=== PATIENT | male | born 1985 | race Caucasian/White ===

== ENCOUNTER 2017-03-28 23:35 | Observation (INO) ==
[2017-03-28] MEDS ORDERED: NITROGLYCERIN 0.4 MG SL TAB (BOTTLE OF 3) SL ONE ×2 (23:49→23:53)
[2017-03-28] MEDS ORDERED: ACETAMINOPHEN 500 MG TABLET PO ONE (23:50)
[2017-03-28] MEDS ORDERED: ASPIRIN 81 MG (BABY) CHEWABLE TABLET ONE (23:50)
[2017-03-28] MEDS ORDERED: CloNIDine Tab 0.1 MG TABLET PO ONE ×2 (23:50→23:53)
[2017-03-28] MEDS ORDERED: ASPIRIN 81 MG (BABY) CHEWABLE TABLET PO ONE (23:53)
[2017-03-29] MEDS ORDERED: CloNIDine Tab 0.1 MG TABLET PO ONE
[2017-03-29] MEDS ORDERED: ACETAMINOPHEN 500 MG TABLET PO ONE (00:01)
[2017-03-29] MEDS ORDERED: Sodium Chloride 0.9% 1,000 ML PRIMARY IV ONE (00:07)
[2017-03-29 00:14] LABS: BASOPHILS # (AUTO) 0.12 10*3/UL; EOSINOPHILS # (AUTO) 0.37 10*3/UL; EOSINOPHILS % (AUTO) 3.1 % (0-8); Hematocrit [HCT] 45.9 % (42.0-52.0); Hemoglobin [HGB] 16.2 g/dL (14.0-18.0); LYMPHOCYTES # (AUTO) 5.09 10*3/uL; MEAN CORPUSCULAR HEMOGLOBIN 30.2 PG (27-31); MEAN CORPUSCULAR HGB CONC 35.3 g/dL (33-37); MEAN CORPUSCULAR VOLUME 85.6 FL (80-90); MEAN PLATELET VOLUME 11.1 FL (7.4-12.2); MONOCYTES # (AUTO) 0.97 10*3/UL (0.3-0.8); MONOCYTES % (AUTO) 8.1 % (5-15); NEUTROPHILS # (AUTO) 5.39 10*3/UL; NEUTROPHILS % (AUTO) 44.9 % (50-80); PLATELET MORPHOLOGY COMMENT NORMAL MORPHOLOGY (NORM); RBC MORPHOLOGY COMMENT NORMAL MORPHOLOGY (NORM); RED BLOOD COUNT 5.36 10^6/uL (4.70-6.10)
--- NOTE | 2017-03-29 00:14 | PDOC ---
Gen Adult / Medical Screen HPI - General Chief Complaint: General Medical Stated Complaint: HIGH BP, CHEST PRESSURE, DIZZY Date Seen by Provider: 03/29/17 Time Seen by Provider: 23:50 Source: POSITIVE: Patient, Spouse Exam Limitations: POSITIVE: No limitations Nurse's Notes Reviewed & Considered: Yes - Indicators Temperature Between 95 and 101 Degrees: Yes Respirations Between 12 and 20: Yes Blood Pressure Between 100-165 (sys) and 60-100 (hill): No (234/164) Pulse Range Between 60-105 (100 for age > 60 years): Yes Severe Pain (Greater than 5/10 Reported): No Chest or Abdominal Pain: Yes Inability to Walk: No Pt Reports Active High Risk Cond. (TB/Hepatitis/HIV/Chemo): No Abnormal Mental Status: No - History of Present Illness Initial Comments: Well-developed 31-year-old male complaining of high blood pressure and chest pain. Patient with recent blood pressure issues and headaches. He comes in tonight because of blood pressure in the 260 systolic range and is very anxious. BP here in the emergency room was 234/164 His father has a history of MS. Patient denies any headache, no sore throat, no shortness of breath, no cough, no nausea vomiting or diarrhea, no abdominal pain, no hematuria or dysuria. Body Location Affected: REPORTS: Chest Timing: REPORTS: Unknown Duration: Unknown Similar Symptoms Previously: Yes Recent Care Received: REPORTS: Recently Seen, Treated by MD Any Prior Injuries Related to Current Complaint?: No - Patient Home Medications Home Medications: Home Medications butalbital 50 mg-acetaminophen 300 mg-caffeine 40 mg-codeine 30 mg cap 1 cap PO Q6H #16 cap 03/22/17 nitvaekzbv-tidueygzcgdye-ntjcgtls 50 mg-300 mg-40 mg capsule 1 cap PO Q6H PRN # 16 cap 03/22/17 sumatriptan 50 mg tablet 50 mg PO ONCE #6 tab 03/25/17 - Patient Allergies Allergies/Adverse Reactions: Allergies 3 Allergy/AdvReac Type Severity Reaction Status Date / Time No Known Allergies Allergy Verified 03/29/17 00:06 Past Medical History - keily VARGAS History: Denies History Cardiovascular History: Denies History Respiratory History: Denies History Gastrointestinal History: GERD Additional Gastrointestinal History: PT STATES THAT HE DOESN'T HAVE HIS STOMACH VALVUE Genitourinary History: Denies History Endocrine History: Denies History Musculoskeletal History: Denies History Prosthesis or Implant: No Additional Musculoskeletal History: RIGHT ANKLE PAIN/ SWELLING Neurological History: Motion Sickness Blood Disorders: Denies History Psychiatric History: Denies History History of Sexually Transmitted Diseases: No Cancer History: Denies History History of MDRO: No History of Other Communicable Diseases: No Alcohol Use: Occasionally In the Past 12 Months, Have Used or Abuse Any Substance: None Previous Surgical History: No Significant Family History: Diabetes, Hypertension Additional Family History: FATHER-DIABETES. FAMILY-HTN ROS - Limitations ROS Limitations: No Limitations Constitution: REPORTS: Chills Cardiovascular: REPORTS: Chest Pain, Blood Pressure Problem Respiratory: REPORTS: Denies Resp Symptoms Neurological: REPORTS: Denies Neuro Symptoms Gastrointestinal: REPORTS: Denies GI Symptoms Endocrine: REPORTS: Denies Symptoms Musculoskeletal: REPORTS: Denies MS Symptoms Genitourinary: REPORTS: Denies Symptoms Eyes: REPORTS: Denies Symptoms ENT: REPORTS: Denies Symptoms Skin: REPORTS: Denies Skin Symptoms Lympathic: REPORTS: Denies Lympathic Symptoms Immunologic: POSITIVE: Denies Symptoms Psychiatric: POSITIVE: Anxiety Gen Adult/Medical Screen Exam - General Appearance General Appearance: POSITIVE: Alert, Cooperative, No Evidence of Trauma, Anxious , Moderate Distress - HEENT HEENT: POSITIVE: Head Inspection Nml, Eyes Inspection Nml, Ears Inspection Nml, Nose Inspection Nml, Oral/Dental Inspect. Nml, Pharynx Inspect. Nml, PERRL, EOMI - Pupils Pupil Size: 4 mm: Bilateral - Neck Neck: POSITIVE: Normal Inspection, Thyroid Normal - Respiratory Respiratory: POSITIVE: No Respiratory Distress, Breath Sounds Normal, Chest Non- Tender - Cardiovascular Cardiovascular: POSITIVE: Regular Rate & Rhythm, No Murmur, No Gallop, PMI Normal Peripheral Pulses: Radial (R): 4+ - Abdomen Abdomen: Soft: (All Quadrants), Normal Bowel Sounds: (All Quadrants), Denies Tenderness: (All Quadrants), No Splenomegaly: (All Quadrants), No Hepatomegaly: (All Quadrants), No Guarding: (All Quadrants), No Rebound: (All Quadrants), No Palpable Pulse: (All Quadrants), No Palpabale Mass: (All Quadrants), No Distention: (All Quadrants), No Rigidity: (All Quadrants) - Neurological / Psychological Mental Status: POSITIVE: Mood Normal, Affect Normal Orientation: POSITIVE: Oriented x 3 - Skin Skin: POSITIVE: Normal Color, Warm, Dry, No Rash - Extremities Extremity: Non-Tender: (All Extremities), Normal ROM: (All Extremities), Normal Inspection: (All Extremities), Pelvis Stable: (All Extremities) Gen Adlt/Medical Scrn Progress - Results Reviewed by me Xrays/CTs/US Reviewed by me: Yes Discussed with Radiologist: No Lab Results Reviewed by Me: Yes CBC and BMP: 03/28/17 23:40 03/28/17 23:40 EKG Interpretation:: POSITIVE: Normal Sinus Rhythm - Patient's Progress Pain Medication Addressed: POSITIVE: Not Applicable Re-Examine Time: 00:46 Status: POSITIVE: Improved MDM / ED Course: Patient was evaluated, an IV started, blood drawn and sent to the lab for studies, EKG and radiographic examinations were obtained. Findings: EKG shows a sinus rhythm. Chest x-ray shows no acute cardiopulmonary decompensation per my interpretation. CBC shows white count of 12, hemoglobin and hematocrit platelets are normal. Comprehensive metabolic panel is unremarkable. CK-MB is negative, troponin is negative, magnesium is normal. Assessment: #1 hypertensive crisis. #2 chest pain with normal enzymes and equivocal EKG. Plan: Admission for chest pain rule out MS and evaluation of etiology for hypertensive crisis. - Consult Consult (If Yes, Name of Consulting MD & Time Called): Yes (Dr. Isbell, 00:45) Consulting MD will see pt:: POSITIVE: [facility] Admit Counseled: POSITIVE: Patient, Family, RE: Lab Results, RE: Radiology Results, RE : DX Patient Care Time - Estimated PCT Patient Care Time (In Minutes): 45 Vital Signs - Recent Vital Signs Vital Signs: Vital Signs (Last 8 hours) Temp Pulse Pulse Resp BP Pulse Ox 03/28/17 23:53 67 03/28/17 23:40 97.5 F 69 18 234/165 97 03/28/17 23:35 97.5 F 69 18 234/165 97 - VS Reviewed Vital Signs Reviewed: Yes Discharge Clinical Impression: Hypertension, Hypertensive emergency, Chest pain Discharge Disposition: Admit to Inpatient Condition: Stable Patient Instructions Given at Discharge: Chest Pain (ED), Hypertensive Crisis ( ED) Follow Up With: CARMINA LARKIN [Primary Care Provider] - Date Decision to Admit to Inpatient: 03/29/17 Time Decision to Admit to Inpatient: 00:45
[2017-03-29 00:15] LABS: BLOOD UREA NITROGEN 22 mg/dL (7-22); BUN/CREATININE RATIO 18.33 (6-20); MAGNESIUM 2.2 mg/dL (1.6-2.4); SERUM ALBUMIN 4.7 g/dL (3.5-4.8); WBC MORPHOLOGY COMMENT SEE COMMENTS (NORM)
[2017-03-29] MEDS ORDERED: LABETALOL 20 MG/4 ML (5 MG/1 ML) SYRINGE IVP PRN (01:05)
[2017-03-29] MEDS ORDERED: LIDOCAINE W/ SODIUM BICARB 0.5 ML SYR SUBD PRN (01:19)
[2017-03-29] MEDS ORDERED: ONDANSETRON 4 MG/2 ML VIAL IVP PRN (01:19)
[2017-03-29] MEDS ORDERED: ACETAMINOPHEN 325 MG TABLET PO PRN (01:19)
[2017-03-29] MEDS ORDERED: NORMAL SALINE 10 ML SYRINGE FLUSH IVP PRN (01:19)
--- NOTE | 2017-03-29 01:26 | EKG ---
[address] [address] Measurements Intervals [place] Rate: 67 P: 29 [place]: 180 QRS: -34 QRSD: 112 T: -12 QT: 394 QTc: 409 Interpretive Statements SINUS RHYTHM LEFT AXIS DEVIATION INTRAVENTRICULAR CONDUCTION DELAY No previous ECG available for comparison Electronically Signed On 03-29-17 14:43:04 MDT by Arvind Gray [email or web address]
[2017-03-29 02:24] LABS: AMPHETAMINE SCREEN NEGATIVE (NEG); BILIRUBIN,URINE NEGATIVE (NEG); CANNABINOID SCREEN,URINE NEGATIVE (NEG); CLARITY,URINE CLEAR (CLEAR); COCAINE SCREEN NEGATIVE (NEG); COLOR,URINE YELLOW; GLUCOSE, URINE (UA) NEGATIVE (NEG); METHADONE URINE SCREEN NEGATIVE (NEG); METHAMPHETAMINES SCREEN,URINE NEGATIVE (NEG); NITRATE,URINE NEGATIVE (NEG); OCCULT BLOOD,URINE NEGATIVE (NEG); OPIATE SCREEN,URINE NEGATIVE (NEG); PH,URINE 5.5 (5.0-8.5); PROTEIN,URINE NEGATIVE (NEG); RBC,URINE 0 /hpf; SQUAMOUS EPITHELIAL CELL,UR RARE; URINE SAMPLE TYPE CLEAN CATCH URINE; UROBILINOGEN,URINE 0.2 mg/dL (0.2); WBC,URINE 0
--- NOTE | 2017-03-29 12:37 | DI ---
XR CXR 1VW,03/29/2017 12:07 AM: Clinical History: Chest pain Previous Exam: None at this facility. Findings: A single frontal radiograph of the chest is obtained, and demonstrate clear lungs. The cardiomediasti num and bony thorax are unremarkable. Impression: Normal chest.
--- NOTE | 2017-03-29 13:31 | PDOC ---
HPI - History of Present Illness Date and Time of Service: 03/29/2017, 1325 Chief Complaint: chest pains and high blood pressures. History of Present Illness: This very pleasant 31-year-old male who started having headaches a couple weeks ago. These were associated with very high blood pressures with systolic blood pressures noted to be in the 240s range on checks at home and checks in the clinic. In fact he had blood pressures in the 160s over 100s fairly consistently. He was tried on several medications for his headaches including Fioricet, and a sumatriptan, and the headaches seem to have improved. He had a head CT scan which was negative for that. His blood pressures have remained elevated and he was started on Bystolic and is been on that for a few days, but his blood pressures remained elevated and he developed chest pain, substernal, and difficult to get rid of, late last night. It did not get better and it scared him into coming into the emergency room. He's not had any shortness of breath. He did not try any other medical interventions, but in the emergency room he was given clonidine which dropped his pressure significantly. His systolic pressure action dropped in the 100s. He states that he does not get any chest pain with activities but does sometimes feel a little short of breath. He's not had any prior cardiac events and is not had any other issues with blood pressure outside the last 2 weeks to his knowledge. He does have a family history positive for hypertension. He does not smoke but chews tobacco. He does not know his cholesterol status, and he is not diabetic. No other exacerbating factors. He is really desiring to go home as his blood pressure control has improved to some degree here today, and is willing to do a treadmill stress test. Past Medical History Medical History: 1. recently diagnosed hypertension. 2. headaches Surgical History: Prior ankle surgery. Pertinent Family History: significant for hypertension for mother and father Past Social History: does not smoke or drink, chews tobacco. . works in the [employer]. has healthy children Tobacco Use: Never Smoker Do you dip or chew tobacco: Yes (1 can) In the Past 12 Months, Have Used or Abuse Any of the Following Substance: None Alcohol Use: Occasionally Medication / Allergies Home Medications: Home Medications Medication Instructions Recorded Confirmed Type butalbital 50 mg-acetaminophen 300 1 cap PO Q6H #16 cap 03/22/17 03/25/17 Rx mg-caffeine 40 mg-codeine 30 mg cap dblacsgnsa-edpnxggnmrpnc-odpwrypw 1 cap PO Q6H PRN #16 cap 03/22/17 03/25/17 Rx 50 mg-300 mg-40 mg capsule sumatriptan 50 mg tablet 50 mg PO ONCE #6 tab 03/25/17 03/25/17 Rx nebivolol 10 mg tablet #4 Samples 03/26/17 03/26/17 Sample Allergies/Adverse Reactions: Allergies 3 Allergy/AdvReac Type Severity Reaction Status Date / Time No Known Allergies Allergy Verified 03/29/17 00:06 Review of Systems - Review of Systems All Systems: Reviewed & No Additional Complaints Except as Stated (I did a 12 point review systems was negative other than that discussed in history present illness and then noted below.) - Cardiovascular Cardiovascular: REPORTS: Chest Pain - Neurological Neurologic: REPORTS: Headache (For the past 2 weeks, and improved significantly. Head CT scan recently found to be negative) Exam - Vitals Vital Signs: Vital Signs Temperature 97.5 F Temperature Source Temporal Artery Scan Pulse Rate [Pulse Oximeter] 67 Pulse Rate 58 Respiratory Rate 18 Blood Pressure [Left Arm] 178/114 Pulse Ox 95 Oxygen Delivery Method Room Air Height 6 ft Weight 272 lb 4 oz - General General Appearance: No Acute Distress, Cooperative - Head Head Exam: Normal Inspection, Normocephalic, Atraumatic - Eye Eye Exam: POSITIVE: No Scleral Icterus - ENT ENT Exam: POSITIVE: Mucous Membranes Moist - Neck Neck Exam: Normal Inspection, No Tenderness, No Lymphadenopathy, No Thyromegaly - Respiratory Respiratory Exam: POSITIVE: Clear to Auscultation - Bilaterally, Breathing Non Labored, Normal to Percussion and Palpation - Cardiovascular Cardiovascular Exam: POSITIVE: RRR, No Murmur, No Clicks, No Gallops, No Rubs, PMI Non-Displaced, No JVD - GI/Abdominal GI/Abdominal Exam: POSITIVE: Normal Bowel Sounds, Non Tender, Non Distended, Soft - Rectal Rectal Exam: POSITIVE: Deferred - External Exam: POSITIVE: Deferred Exam: POSITIVE: Deferred - Extremities Extremities Exam: POSITIVE: No Clubbing Present, No Edema Present, No Cyanosis Present - Back Back Exam: POSITIVE: No CVA Tenderness - Neurological Neurological Exam: POSITIVE: Alert, Oriented x 3, Normal Gait, No Facial Droop, Speech Intact / Clear, Moves All Extremities Equally - Psychiatric Psychiatric Exam: POSITIVE: Normal Affect, Normal Mood Results - Labs CBC and BMP: 03/28/17 23:40 03/28/17 23:40 Additional Lab Results: Laboratory Results 03/28/17 03/28/17 03/28/17 Range/Units 23:40 23:40 23:40 WBC 11.99 H (4.8-10.8) 10^3/uL RBC 5.36 (4.70-6.10) 10^6/uL Hgb 16.2 (14.0-18.0) g/dL Hct 45.9 (42.0-52.0) % MCV 85.6 (80-90) FL MCH 30.2 (27-31) PG MCHC 35.3 (33-37) g/dL RDW Std Deviation 40.8 (39-50) fL RDW Coeff of Yrn 13.2 (11.5-14.5) % Plt Count 263 (140-350) 10*3/uL MPV 11.1 (7.4-12.2) FL Immature Gran % (Auto) 0.4 (0-5) % Neut % (Auto) 44.9 L (50-80) % Lymph % (Auto) 42.5 (10-50) % [place] % (Auto) 8.1 (5-15) % Eos % (Auto) 3.1 (0-8) % Baso % (Auto) 1.0 (0-1) % Immature Gran # (Auto) 0.05 10*3/UL Neut # (Auto) 5.39 10*3/UL Lymph # (Auto) 5.09 10*3/uL [place] # (Auto) 0.97 H (0.3-0.8) 10*3/UL Eos # (Auto) 0.37 10*3/UL Baso # (Auto) 0.12 10*3/UL WBC Morphology Comment See comments (NORM) Plt Morphology Comment Normal morphology (NORM) RBC Morph Comment Normal morphology (NORM) Sodium 143 (135-145) meq/L Potassium 4.0 (3.8-5.2) meq/L Chloride 106 (98-112) meq/L Carbon Dioxide 21 L (23-33) meq/L Anion Gap 16 (5-20) BUN 22 (7-22) mg/dL Creatinine 1.2 (0.70-1.50) mg/dL Estimated GFR > 60 (>60 ml/min/1.73m(2)) BUN/Creatinine Ratio 18.33 (6-20) Glucose 95 (78-110) mg/dL Calculated Osmolality 298.0 H (267-292) mOsm/kg Calcium 9.8 (8.7-10.7) mg/dL Magnesium 2.2 (1.6-2.4) mg/dL Total Bilirubin 0.7 (0.3-1.2) mg/dL AST 38 (21-57) IU/L ALT 50 (21-72) IU/L Alkaline Phosphatase 86 (38-126) IU/L CK-MB (CK-2) 0.81 (0.00-5.00) NG/ML Troponin I < 0.012 (< 0.040) ng/mL NT-Pro-B Natriuret Pep (0-125) PG/ML Total Protein 7.9 (6.1-8.0) g/dL Albumin 4.7 (3.5-4.8) g/dL Globulin 3.2 (2.50-4.10) g/dL Albumin/Globulin Ratio 1.40 (1.3-2.0) mg/g TSH (0.2700-4.2000) uIU/mL Free T4 (0.93-1.71) ng/dL Ur Collection Type Urine Color Urine Clarity (CLEAR) Urine pH (5.0-8.5) Ur Specific [place] (1.005-1.030) U Specif Grav (Refrac) Urine Protein (NEG) mg/dl Urine Glucose (UA) (NEG) mg/dL Urine Ketones (NEG) Urine Occult Blood (NEG) Urine Nitrate (NEG) Urine Bilirubin (NEG) Urine Urobilinogen (0.2) mg/dL Ur Leukocyte Esterase (NEG) Urine RBC (NONE) /hpf Urine WBC (NONE) Ur Squamous Epith Cells (NONE) Ur Renal Epithelial Cell (NONE) Urine Crystals Urine Bacteria (NONE) Urine Casts Urine Mucus (NONE) Urine Trichomonas (NONE) Urine Yeast (NONE) Urine Opiates Screen (NEG) Ur Buprenorphine (NEG) Ur Oxycodone Screen (NEG) Urine Methadone Screen (NEG) Ur Propoxyphene Screen (NEG) Barbiturate Screen (NEG) U Tricyclic Antidepress (NEG) Phencyclidine Screen (NEG) Amphetamines Screen (NEG) U Methamphetamines Scrn (NEG) Benzodiazepines Screen (NEG) Cocaine Screen (NEG) U Marijuana (THC) Screen (NEG) 03/28/17 03/29/17 03/29/17 Range/Units 23:40 02:00 05:50 WBC (4.8-10.8) 10^3/uL RBC (4.70-6.10) 10^6/uL Hgb (14.0-18.0) g/dL Hct (42.0-52.0) % MCV (80-90) FL MCH (27-31) PG MCHC (33-37) g/dL RDW Std Deviation (39-50) fL RDW Coeff of Yrn (11.5-14.5) % Plt Count (140-350) 10*3/uL MPV (7.4-12.2) FL Immature Gran % (Auto) (0-5) % Neut % (Auto) (50-80) % Lymph % (Auto) (10-50) % [place] % (Auto) (5-15) % Eos % (Auto) (0-8) % Baso % (Auto) (0-1) % Immature Gran # (Auto) 10*3/UL Neut # (Auto) 10*3/UL Lymph # (Auto) 10*3/uL [place] # (Auto) (0.3-0.8) 10*3/UL Eos # (Auto) 10*3/UL Baso # (Auto) 10*3/UL WBC Morphology Comment (NORM) Plt Morphology Comment (NORM) RBC Morph Comment (NORM) Sodium (135-145) meq/L Potassium (3.8-5.2) meq/L Chloride (98-112) meq/L Carbon Dioxide (23-33) meq/L Anion Gap (5-20) BUN (7-22) mg/dL Creatinine (0.70-1.50) mg/dL Estimated GFR (>60 ml/min/1.73m(2)) BUN/Creatinine Ratio (6-20) Glucose (78-110) mg/dL Calculated Osmolality (267-292) mOsm/kg Calcium (8.7-10.7) mg/dL Magnesium (1.6-2.4) mg/dL Total Bilirubin (0.3-1.2) mg/dL AST (21-57) IU/L ALT (21-72) IU/L Alkaline Phosphatase (38-126) IU/L CK-MB (CK-2) (0.00-5.00) NG/ML Troponin I (< 0.040) ng/mL NT-Pro-B Natriuret Pep 693 H (0-125) PG/ML Total Protein (6.1-8.0) g/dL Albumin (3.5-4.8) g/dL Globulin (2.50-4.10) g/dL Albumin/Globulin Ratio (1.3-2.0) mg/g TSH 2.99 (0.2700-4.2000) uIU/mL Free T4 0.92 L (0.93-1.71) ng/dL Ur Collection Type Clean catch urine Urine Color Yellow Urine Clarity Clear (CLEAR) Urine pH 5.5 (5.0-8.5) Ur Specific [place] 1.020 (1.005-1.030) U Specif Grav (Refrac) 1.020 Urine Protein Negative (NEG) mg/dl Urine Glucose (UA) Negative (NEG) mg/dL Urine Ketones Negative (NEG) Urine Occult Blood Negative (NEG) Urine Nitrate Negative (NEG) Urine Bilirubin Negative (NEG) Urine Urobilinogen 0.2 (0.2) mg/dL Ur Leukocyte Esterase Negative (NEG) Urine RBC 0 (NONE) /hpf Urine WBC 0 (NONE) Ur Squamous Epith Cells Rare (NONE) Ur Renal Epithelial Cell None (NONE) Urine Crystals None Urine Bacteria None (NONE) Urine Casts None Urine Mucus Moderate (NONE) Urine Trichomonas None (NONE) Urine Yeast None (NONE) Urine Opiates Screen Negative (NEG) Ur Buprenorphine Negative (NEG) Ur Oxycodone Screen Negative (NEG) Urine Methadone Screen Negative (NEG) Ur Propoxyphene Screen Negative (NEG) Barbiturate Screen Positive H (NEG) U Tricyclic Antidepress Negative (NEG) Phencyclidine Screen Negative (NEG) Amphetamines Screen Negative (NEG) U Methamphetamines Scrn Negative (NEG) Benzodiazepines Screen Negative (NEG) Cocaine Screen Negative (NEG) U Marijuana (THC) Screen Negative (NEG) 03/29/17 03/29/17 Range/Units 05:50 11:50 WBC (4.8-10.8) 10^3/uL RBC (4.70-6.10) 10^6/uL Hgb (14.0-18.0) g/dL Hct (42.0-52.0) % MCV (80-90) FL MCH (27-31) PG MCHC (33-37) g/dL RDW Std Deviation (39-50) fL RDW Coeff of Yrn (11.5-14.5) % Plt Count (140-350) 10*3/uL MPV (7.4-12.2) FL Immature Gran % (Auto) (0-5) % Neut % (Auto) (50-80) % Lymph % (Auto) (10-50) % [place] % (Auto) (5-15) % Eos % (Auto) (0-8) % Baso % (Auto) (0-1) % Immature Gran # (Auto) 10*3/UL Neut # (Auto) 10*3/UL Lymph # (Auto) 10*3/uL [place] # (Auto) (0.3-0.8) 10*3/UL Eos # (Auto) 10*3/UL Baso # (Auto) 10*3/UL WBC Morphology Comment (NORM) Plt Morphology Comment (NORM) RBC Morph Comment (NORM) Sodium (135-145) meq/L Potassium (3.8-5.2) meq/L Chloride (98-112) meq/L Carbon Dioxide (23-33) meq/L Anion Gap (5-20) BUN (7-22) mg/dL Creatinine (0.70-1.50) mg/dL Estimated GFR (>60 ml/min/1.73m(2)) BUN/Creatinine Ratio (6-20) Glucose (78-110) mg/dL Calculated Osmolality (267-292) mOsm/kg Calcium (8.7-10.7) mg/dL Magnesium (1.6-2.4) mg/dL Total Bilirubin (0.3-1.2) mg/dL AST (21-57) IU/L ALT (21-72) IU/L Alkaline Phosphatase (38-126) IU/L CK-MB (CK-2) (0.00-5.00) NG/ML Troponin I < 0.012 < 0.012 (< 0.040) ng/mL NT-Pro-B Natriuret Pep (0-125) PG/ML Total Protein (6.1-8.0) g/dL Albumin (3.5-4.8) g/dL Globulin (2.50-4.10) g/dL Albumin/Globulin Ratio (1.3-2.0) mg/g TSH (0.2700-4.2000) uIU/mL Free T4 (0.93-1.71) ng/dL Ur Collection Type Urine Color Urine Clarity (CLEAR) Urine pH (5.0-8.5) Ur Specific [place] (1.005-1.030) U Specif Grav (Refrac) Urine Protein (NEG) mg/dl Urine Glucose (UA) (NEG) mg/dL Urine Ketones (NEG) Urine Occult Blood (NEG) Urine Nitrate (NEG) Urine Bilirubin (NEG) Urine Urobilinogen (0.2) mg/dL Ur Leukocyte Esterase (NEG) Urine RBC (NONE) /hpf Urine WBC (NONE) Ur Squamous Epith Cells (NONE) Ur Renal Epithelial Cell (NONE) Urine Crystals Urine Bacteria (NONE) Urine Casts Urine Mucus (NONE) Urine Trichomonas (NONE) Urine Yeast (NONE) Urine Opiates Screen (NEG) Ur Buprenorphine (NEG) Ur Oxycodone Screen (NEG) Urine Methadone Screen (NEG) Ur Propoxyphene Screen (NEG) Barbiturate Screen (NEG) U Tricyclic Antidepress (NEG) Phencyclidine Screen (NEG) Amphetamines Screen (NEG) U Methamphetamines Scrn (NEG) Benzodiazepines Screen (NEG) Cocaine Screen (NEG) U Marijuana (THC) Screen (NEG) - EKG Data -: EKG Interpreted by Me Rate: Normal EKG Shows Normal: Sinus Rhythm (Left axis deviation.) - Imaging Status: Image Reviewed by Me (Chest x-ray is negative for acute cardiopulmonary disease.) Assessment and Plan - Patient Problems (1) Hypertensive crisis Current Visit: Yes Status: Acute Code(s): I16.9 - Hypertensive crisis, unspecified (2) Chest pain Current Visit: Yes Status: Acute Code(s): R07.9 - Chest pain, unspecified (3) Tobacco abuse Current Visit: Yes Status: Acute Code(s): Z72.0 - Tobacco use (4) Hypertension Current Visit: Yes Status: Acute Code(s): I10 - Essential (primary) hypertension Qualifiers: Hypertension type: essential hypertension Qualified Code(s): I10 - Essential (primary) hypertension - Assessment / Plan Additional Assessment/Plan Details: This time I'll admit the patient. We'll write for labetalol when necessary for blood pressure control and start Norvasc. I don't think Bystolic will be the best choice given his age and common side effects of erectile dysfunction and depression. We talked a lot about diet and exercise changes. In particular we talked about increasing vegetable intake, eliminating salt, and I would like to do a treadmill stress test with the chest pain as he has negative troponins and has ruled out for myocardial infarction. This will help me not only determine whether or not there could be underlying coronary artery disease albeit rare at 31, but will help me determine whether or not he has a good functional capacity for aerobic exercise that may very well improve his blood pressure. Advised him to quit tobacco, stated that we would try to help him when he is ready. He is pre-contemplative. Given his age and high blood pressures, I think it's reasonable to do a workup for secondary hypertension, and I sent off some studies for that. In addition, I quiz the pretty closely about signs and symptoms of obstructive sleep apnea which often can cause resistant hypertension, but the patient does not have a lot of sleep dysfunction. He does occasionally snore. It may be worth considering a nocturnal pulse oximetry study as an outpatient. If the patient has a normal stress test today, I think we could discharge him later this afternoon. Plan above was discussed with both the patient, his , and his mother, and they all agreed to the plan.
[2017-03-29 16:57] VITALS: BP 179/119; RESP 17; TEMP 97.1; O2SAT 96
--- NOTE | 2017-03-29 17:04 | DCSUMMARY ---
Hospitalization Summary Admit Date: 03/29/17 Discharge Date: 03/29/17 Primary Diagnosis:: hypertensive crisis, resolved Secondary Diagnosis:: 1. Hypertension 2. Chest pain, resolved, nondiagnostic treadmill stress test with hypertensive response to exercise and good functional aerobic capacity. Recommendations for chemical stress test given. He wants to discuss with primary physician, and will visit her next week. Hospital Course: This very pleasant 31 mL that was admitted with hypertensive crisis, his blood pressures were in the 200s on the systolic side, and we admitted him for evaluation and management of this. He does have some signs of left heart enlargement with left axis deviation, but no signs of kidney damage. He ruled out for myocardial infarction and we did do a treadmill stress test but could not get to maximum heart rate due to fatigue on this study. He had about 75% of predicted heart rate. His functional capacity was very good with a double product over 21,000. I think he can do 30-45 minutes of aerobic activity at least 5 days a week and I told him that. I also told him that he needs to quit tobacco and showed a 50% of his food intake as vegetables. Otherwise, patient did well with the hospital stay and he is anxious to go home. We did do significant laboratory workup for secondary hypertension. This included looking at the aldosterone access, a TSH and free T4 which did not reveal any evidence of hypo-or hyperthyroidism, cortisol studies although the patient does not appear cushingoid, and if his spironolactone might be a very good choice for him or something along those lines for possible hyperaldosteronism. Ultimately this is likely essential hypertension worsened by weight and tobacco use. I did screen with questions for obstructive sleep apnea and the patient does snore but otherwise does not have symptoms consistent with obstructive sleep apnea. A sleep study could be conducted as I could certainly cause refractory hypertension. Thus far though he has responded to medications and his blood pressures were reduced. No completes of any chest pain, shortness breath, nausea or vomiting today. Patient wishes to go home. Assessment and Plan: 1. As per discharge assessments noted 2. Disposition: Patient is discharged home 3. Condition on discharge, stable and improved. 4. Diet: regular diet 5. Activities: resume normal activities 6. Follow-Up: 1. See Dr. Goldstein on 04/06/2017. Consideration for chemical stress test should be discussed. 2. 7. Medications at the Time of Discharge: 8. Time, care, counseling and coordination of care for this discharge is greater than 30 minutes. However this is a same-day discharge and admission Exam - Vitals Vital Signs: Vital Signs Temperature 97.1 F Temperature Source Temporal Artery Scan Pulse Rate [Pulse Oximeter] 69 Pulse Rate 66 Respiratory Rate 17 Blood Pressure [Left Arm] 179/119 Pulse Ox 96 Oxygen Delivery Method Room Air Height 6 ft Weight 272 lb 4 oz - General General Appearance: No Acute Distress, Cooperative - Eye Eye Exam: POSITIVE: No Scleral Icterus - ENT ENT Exam: POSITIVE: Mucous Membranes Moist - Respiratory Respiratory Exam: POSITIVE: Clear to Auscultation - Bilaterally, Breathing Non Labored - Cardiovascular Cardiovascular Exam: POSITIVE: RRR, No Murmur, No Clicks, No Gallops, No Rubs, No JVD - GI/Abdominal GI/Abdominal Exam: POSITIVE: Normal Bowel Sounds, Non Tender, Non Distended, Soft - Extremities Extremities Exam: POSITIVE: No Clubbing Present, No Edema Present, No Cyanosis Present - Neurological Neurological Exam: POSITIVE: Alert, Oriented x 3, Normal Gait, No Facial Droop, Speech Intact / Clear, Moves All Extremities Equally Data Perinent Studies: Laboratory Results 03/28/17 03/28/17 03/28/17 Range/Units 23:40 23:40 23:40 WBC 11.99 H (4.8-10.8) 10^3/uL RBC 5.36 (4.70-6.10) 10^6/uL Hgb 16.2 (14.0-18.0) g/dL Hct 45.9 (42.0-52.0) % MCV 85.6 (80-90) FL MCH 30.2 (27-31) PG MCHC 35.3 (33-37) g/dL RDW Std Deviation 40.8 (39-50) fL RDW Coeff of Yrn 13.2 (11.5-14.5) % Plt Count 263 (140-350) 10*3/uL MPV 11.1 (7.4-12.2) FL Immature Gran % (Auto) 0.4 (0-5) % Neut % (Auto) 44.9 L (50-80) % Lymph % (Auto) 42.5 (10-50) % Baxter % (Auto) 8.1 (5-15) % Eos % (Auto) 3.1 (0-8) % Baso % (Auto) 1.0 (0-1) % Immature Gran # (Auto) 0.05 10*3/UL Neut # (Auto) 5.39 10*3/UL Lymph # (Auto) 5.09 10*3/uL Baxter # (Auto) 0.97 H (0.3-0.8) 10*3/UL Eos # (Auto) 0.37 10*3/UL Baso # (Auto) 0.12 10*3/UL WBC Morphology Comment See comments (NORM) Plt Morphology Comment Normal morphology (NORM) RBC Morph Comment Normal morphology (NORM) Sodium 143 (135-145) meq/L Potassium 4.0 (3.8-5.2) meq/L Chloride 106 (98-112) meq/L Carbon Dioxide 21 L (23-33) meq/L Anion Gap 16 (5-20) BUN 22 (7-22) mg/dL Creatinine 1.2 (0.70-1.50) mg/dL Estimated GFR > 60 (>60 ml/min/1.73m(2)) BUN/Creatinine Ratio 18.33 (6-20) Glucose 95 (78-110) mg/dL Calculated Osmolality 298.0 H (267-292) mOsm/kg Calcium 9.8 (8.7-10.7) mg/dL Magnesium 2.2 (1.6-2.4) mg/dL Total Bilirubin 0.7 (0.3-1.2) mg/dL AST 38 (21-57) IU/L ALT 50 (21-72) IU/L Alkaline Phosphatase 86 (38-126) IU/L CK-MB (CK-2) 0.81 (0.00-5.00) NG/ML Troponin I < 0.012 (< 0.040) ng/mL NT-Pro-B Natriuret Pep (0-125) PG/ML Total Protein 7.9 (6.1-8.0) g/dL Albumin 4.7 (3.5-4.8) g/dL Globulin 3.2 (2.50-4.10) g/dL Albumin/Globulin Ratio 1.40 (1.3-2.0) mg/g TSH (0.2700-4.2000) uIU/mL Free T4 (0.93-1.71) ng/dL Ur Collection Type Urine Color Urine Clarity (CLEAR) Urine pH (5.0-8.5) Ur Specific [place] (1.005-1.030) U Specif Grav (Refrac) Urine Protein (NEG) mg/dl Urine Glucose (UA) (NEG) mg/dL Urine Ketones (NEG) Urine Occult Blood (NEG) Urine Nitrate (NEG) Urine Bilirubin (NEG) Urine Urobilinogen (0.2) mg/dL Ur Leukocyte Esterase (NEG) Urine RBC (NONE) /hpf Urine WBC (NONE) Ur Squamous Epith Cells (NONE) Ur Renal Epithelial Cell (NONE) Urine Crystals Urine Bacteria (NONE) Urine Casts Urine Mucus (NONE) Urine Trichomonas (NONE) Urine Yeast (NONE) Urine Opiates Screen (NEG) Ur Buprenorphine (NEG) Ur Oxycodone Screen (NEG) Urine Methadone Screen (NEG) Ur Propoxyphene Screen (NEG) Barbiturate Screen (NEG) U Tricyclic Antidepress (NEG) Phencyclidine Screen (NEG) Amphetamines Screen (NEG) U Methamphetamines Scrn (NEG) Benzodiazepines Screen (NEG) Cocaine Screen (NEG) U Marijuana (THC) Screen (NEG) 03/28/17 03/29/17 03/29/17 Range/Units 23:40 02:00 05:50 WBC (4.8-10.8) 10^3/uL RBC (4.70-6.10) 10^6/uL Hgb (14.0-18.0) g/dL Hct (42.0-52.0) % MCV (80-90) FL MCH (27-31) PG MCHC (33-37) g/dL RDW Std Deviation (39-50) fL RDW Coeff of Yrn (11.5-14.5) % Plt Count (140-350) 10*3/uL MPV (7.4-12.2) FL Immature Gran % (Auto) (0-5) % Neut % (Auto) (50-80) % Lymph % (Auto) (10-50) % Baxter % (Auto) (5-15) % Eos % (Auto) (0-8) % Baso % (Auto) (0-1) % Immature Gran # (Auto) 10*3/UL Neut # (Auto) 10*3/UL Lymph # (Auto) 10*3/uL Baxter # (Auto) (0.3-0.8) 10*3/UL Eos # (Auto) 10*3/UL Baso # (Auto) 10*3/UL WBC Morphology Comment (NORM) Plt Morphology Comment (NORM) RBC Morph Comment (NORM) Sodium (135-145) meq/L Potassium (3.8-5.2) meq/L Chloride (98-112) meq/L Carbon Dioxide (23-33) meq/L Anion Gap (5-20) BUN (7-22) mg/dL Creatinine (0.70-1.50) mg/dL Estimated GFR (>60 ml/min/1.73m(2)) BUN/Creatinine Ratio (6-20) Glucose (78-110) mg/dL Calculated Osmolality (267-292) mOsm/kg Calcium (8.7-10.7) mg/dL Magnesium (1.6-2.4) mg/dL Total Bilirubin (0.3-1.2) mg/dL AST (21-57) IU/L ALT (21-72) IU/L Alkaline Phosphatase (38-126) IU/L CK-MB (CK-2) (0.00-5.00) NG/ML Troponin I (< 0.040) ng/mL NT-Pro-B Natriuret Pep 693 H (0-125) PG/ML Total Protein (6.1-8.0) g/dL Albumin (3.5-4.8) g/dL Globulin (2.50-4.10) g/dL Albumin/Globulin Ratio (1.3-2.0) mg/g TSH 2.99 (0.2700-4.2000) uIU/mL Free T4 0.92 L (0.93-1.71) ng/dL Ur Collection Type Clean catch urine Urine Color Yellow Urine Clarity Clear (CLEAR) Urine pH 5.5 (5.0-8.5) Ur Specific [place] 1.020 (1.005-1.030) U Specif Grav (Refrac) 1.020 Urine Protein Negative (NEG) mg/dl Urine Glucose (UA) Negative (NEG) mg/dL Urine Ketones Negative (NEG) Urine Occult Blood Negative (NEG) Urine Nitrate Negative (NEG) Urine Bilirubin Negative (NEG) Urine Urobilinogen 0.2 (0.2) mg/dL Ur Leukocyte Esterase Negative (NEG) Urine RBC 0 (NONE) /hpf Urine WBC 0 (NONE) Ur Squamous Epith Cells Rare (NONE) Ur Renal Epithelial Cell None (NONE) Urine Crystals None Urine Bacteria None (NONE) Urine Casts None Urine Mucus Moderate (NONE) Urine Trichomonas None (NONE) Urine Yeast None (NONE) Urine Opiates Screen Negative (NEG) Ur Buprenorphine Negative (NEG) Ur Oxycodone Screen Negative (NEG) Urine Methadone Screen Negative (NEG) Ur Propoxyphene Screen Negative (NEG) Barbiturate Screen Positive H (NEG) U Tricyclic Antidepress Negative (NEG) Phencyclidine Screen Negative (NEG) Amphetamines Screen Negative (NEG) U Methamphetamines Scrn Negative (NEG) Benzodiazepines Screen Negative (NEG) Cocaine Screen Negative (NEG) U Marijuana (THC) Screen Negative (NEG) 03/29/17 03/29/17 Range/Units 05:50 11:50 WBC (4.8-10.8) 10^3/uL RBC (4.70-6.10) 10^6/uL Hgb (14.0-18.0) g/dL Hct (42.0-52.0) % MCV (80-90) FL MCH (27-31) PG MCHC (33-37) g/dL RDW Std Deviation (39-50) fL RDW Coeff of Yrn (11.5-14.5) % Plt Count (140-350) 10*3/uL MPV (7.4-12.2) FL Immature Gran % (Auto) (0-5) % Neut % (Auto) (50-80) % Lymph % (Auto) (10-50) % Baxter % (Auto) (5-15) % Eos % (Auto) (0-8) % Baso % (Auto) (0-1) % Immature Gran # (Auto) 10*3/UL Neut # (Auto) 10*3/UL Lymph # (Auto) 10*3/uL Baxter # (Auto) (0.3-0.8) 10*3/UL Eos # (Auto) 10*3/UL Baso # (Auto) 10*3/UL WBC Morphology Comment (NORM) Plt Morphology Comment (NORM) RBC Morph Comment (NORM) Sodium (135-145) meq/L Potassium (3.8-5.2) meq/L Chloride (98-112) meq/L Carbon Dioxide (23-33) meq/L Anion Gap (5-20) BUN (7-22) mg/dL Creatinine (0.70-1.50) mg/dL Estimated GFR (>60 ml/min/1.73m(2)) BUN/Creatinine Ratio (6-20) Glucose (78-110) mg/dL Calculated Osmolality (267-292) mOsm/kg Calcium (8.7-10.7) mg/dL Magnesium (1.6-2.4) mg/dL Total Bilirubin (0.3-1.2) mg/dL AST (21-57) IU/L ALT (21-72) IU/L Alkaline Phosphatase (38-126) IU/L CK-MB (CK-2) (0.00-5.00) NG/ML Troponin I < 0.012 < 0.012 (< 0.040) ng/mL NT-Pro-B Natriuret Pep (0-125) PG/ML Total Protein (6.1-8.0) g/dL Albumin (3.5-4.8) g/dL Globulin (2.50-4.10) g/dL Albumin/Globulin Ratio (1.3-2.0) mg/g TSH (0.2700-4.2000) uIU/mL Free T4 (0.93-1.71) ng/dL Ur Collection Type Urine Color Urine Clarity (CLEAR) Urine pH (5.0-8.5) Ur Specific [place] (1.005-1.030) U Specif Grav (Refrac) Urine Protein (NEG) mg/dl Urine Glucose (UA) (NEG) mg/dL Urine Ketones (NEG) Urine Occult Blood (NEG) Urine Nitrate (NEG) Urine Bilirubin (NEG) Urine Urobilinogen (0.2) mg/dL Ur Leukocyte Esterase (NEG) Urine RBC (NONE) /hpf Urine WBC (NONE) Ur Squamous Epith Cells (NONE) Ur Renal Epithelial Cell (NONE) Urine Crystals Urine Bacteria (NONE) Urine Casts Urine Mucus (NONE) Urine Trichomonas (NONE) Urine Yeast (NONE) Urine Opiates Screen (NEG) Ur Buprenorphine (NEG) Ur Oxycodone Screen (NEG) Urine Methadone Screen (NEG) Ur Propoxyphene Screen (NEG) Barbiturate Screen (NEG) U Tricyclic Antidepress (NEG) Phencyclidine Screen (NEG) Amphetamines Screen (NEG) U Methamphetamines Scrn (NEG) Benzodiazepines Screen (NEG) Cocaine Screen (NEG) U Marijuana (THC) Screen (NEG) Several labs are pending. Radiologic data: Please note that the study results are copied below for the ease of the accepting physician in the clinic to review study results. [address] [facility]. [facility] [place] [address] PH: [phone] FAX: [phone] ~DIAGNOSTIC IMAGING REPORT~ Patient: Anibal Orona : 1985 Sex: M Age: 31 Exam Name: XR CXR 1VW Exam Date: 03/29/17 Report # : [id number] CPT Code: 78601 EMR/MR #: [id number] Ordering: Romie Miller Admiting: EMPERATRIZ FRANZ DO Primary: Ifrah Camarillo MD. Attending: EMPERATRIZ FRANZ DO Signed XR CXR 1VW,03/29/2017 12:07 AM: Clinical History: Chest pain Previous Exam: None at this facility. Findings: A single frontal radiograph of the chest is obtained, and demonstrate clear lungs. The cardiomediastinum and bony thorax are unremarkable. Impression: Normal chest. Dictated By: 03/29/17 1229 MAURO SHIELDS MD. Signed By: 03/29/17 1237 MAURO SHIELDS MD. Patient Problems - Patient Problem List (1) Hypertension Current Visit: Yes Status: Acute Code(s): I10 - Essential (primary) hypertension Qualifiers: Hypertension type: essential hypertension Qualified Code(s): I10 - Essential (primary) hypertension Category: Medical (2) Hypertensive crisis Current Visit: Yes Status: Resolved Code(s): I16.9 - Hypertensive crisis, unspecified Category: Medical (3) Chest pain Current Visit: Yes Status: Acute Code(s): R07.9 - Chest pain, unspecified Qualifiers: Chest pain type: other chest pain Qualified Code(s): R07.89 - Other chest pain; R07.8 - Other chest pain Category: Medical (4) Tobacco abuse Current Visit: Yes Status: Acute Code(s): Z72.0 - Tobacco use Category: Medical
[2017-04-01 13:11] LABS: METANEPHRINE FREE <0.20 nmol/L (<0.50); Renin Activity, Plasma <0.6 ng/mL/h
--- NOTE | 2017-04-01 14:14 | STRESSTEST ---
[facility] Interpretive Statements Thisis a 31 YO male recently diagnosed with HTN who presented with chest pain. no family Hx of CAD, no DMII, unknown cholesterol. Patient ruled out for LA but has LAD on EKG. EKG otherwise NSR. Exercised in Pelon protocol to maximum HR of 141, 75%. Hypertensive response to exercise, double product at 21,424, 11.2 METs. PVC noted. , overall, non-diagnostic Pelon protocol ETT with hypertensive response to exercise with good functional capacity for aerobic exercise. Plan: 30-45 min of aerobic exercise 5 days a week, weights okay as well. follow with doctor in clinic and consider nuclear stress test to answer question of whether CAD is present. Electronically Signed On 03-29-17 16:34:08 MDT by Sanjay Olivares MD Electronically Signed On 03-30-17 16:07:27 MDT by Sanjay Olivares MD [email or web address]
== END 2017-03-29 17:36 | disposition home or self-care (01) ==
LOC: ER 23:35 → MED/SURG 23:35
PROVIDERS: ADMIT Family Medicine; ATTEND Family Medicine